=== PATIENT | female | born 1940 | race Caucasian/White ===

== ENCOUNTER 2019-07-01 16:34 | Emergency (ER) | payer MEDICARE, BC ==
[2019-07-01 17:07] VITALS: BP 132/52
--- NOTE | 2019-07-01 17:20 | UC ---
Hip/Pelvis Pain - HPI Summary HPI Summary: 79 yo woman with history of right hip replacement 8 years ago, with progressive pain in the right hip x 4 weeks diagnosed by her orthopedic surgeon as bursitis. An MRI is pending. This morning, she planted her right foot on a rise and twisted, with excruciating pain in the hip since then, such that she is having problems weight bearing. Walks with a cane, but wheel chair assisted to the room. Plain xray one week ago showed normal prosthesis, but she is concerned that she did something today to damage the joint. Has taken 1200mg of gabapentin today, but has not used acetaminophen, which she typically only uses at night. - History Of Current Complaint Chief Complaint: UCLowerExtremity Stated Complaint: RT HIP PAIN Time Seen by Provider: 07/01/19 17:05 Hx Obtained From: Patient Onset/Duration: Gradual Onset, Lasting Weeks Timing: Constant Severity Initially: Severe Severity Currently: Moderate Pain Intensity: 8 Character Of Pain: Dull, Aching, Throbbing Aggravating Factor(s): Movement, Weight Bearing Alleviating Factor(s): Rest, OTC Medications - underusing acetaminophen - Risk Factors Septic Arthritis Risk Factor: Pre-existing Joint Disease, Prosthesis - Allergies/Home Medications Allergies/Adverse Reactions: Allergies Allergy/AdvReac Type Severity Reaction Status Date / Time No Known Allergies Allergy Verified 07/01/19 17:07 PMH/Surg Hx/FS Hx/Imm Hx Cardiovascular History: Cardiac Disease, Hypertension Respiratory History: Asthma Psychological History: Anxiety - Surgical History Surgical History: Yes Surgery Procedure, Year, and Place: 9 stents, both hips replaced, rotator, tubes tied, 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 - Family History Known Family History: Positive: Non-Contributory - Social History Occupation: Retired Lives: With Family Alcohol Use: Daily Substance Use Type: None Smoking Status (MU): Never Smoked Tobacco Review of Systems All Other Systems Reviewed And Are Negative: Yes Constitutional: Positive: Fatigue Cardiovascular: Positive: Other - hx of CAD. Negative: Chest Pain Musculoskeletal: Positive: Arthralgia, Decreased ROM Psychological: Positive: Negative Is Patient Immunocompromised?: No Physical Exam Triage Information Reviewed: Yes Appearance: Pain Distress - moderate, cannot stand or move to exam table. Vital Signs: Initial Vital Signs Temp 98 F 07/01/19 16:56 Pulse 66 07/01/19 16:56 Resp 16 07/01/19 16:56 BP 132/52 07/01/19 16:56 Pulse Ox 100 07/01/19 16:56 Eye Exam: Normal Respiratory: Positive: Lungs clear, Normal breath sounds Cardiovascular: Positive: RRR, No Murmur Musculoskeletal: Positive: No Edema, ROM Limited @ Psychological Exam: Normal Skin Exam: Normal Diagnostics - Radiology No standard instances Radiology Interpretation Completed By: Radiologist Summary of Radiographic Findings: Prosthesis in place, no acute findings per radiologist. Hip Injury Course/Dx - Course Course Of Treatment: Increase use of acetaminophen and follow up with [facility] for further workup. - Differential Dx/Diagnosis Differential Diagnosis/HQI/PQRI: Bursitis, Sprain, Strain, Other - displaced prosthesis. Provider Diagnosis: Bursitis of right hip Discharge ED - Sign-Out/Discharge Documenting (check all that apply): Patient Departure All imaging exams completed and their final reports reviewed: Yes - Discharge Plan Condition: Stable Disposition: HOME Patient Education Materials: Hip Bursitis (ED) Referrals: Elba VICTORIA,Gracie Bell [Primary Care Provider] - Additional Instructions: At least for the next 48 hours, increase use of acetaminophen to 650mg every 6 hours (or 100mg 3x per day), and try heat to the hip. As discussed, please follow up with [facility] to determine best management of your suspected hip bursitis. - Billing Disposition and Condition Condition: STABLE Disposition: Home
[2019-07-01] MEDS ORDERED: Acetaminophen TAB* 325 MG PO ONE (17:23)
== END 2019-07-01 18:39 | disposition home or self-care (01) ==
LOC: UCCORT 16:34
DX: M70.71 Other bursitis of hip, right hip (principal); R53.83 Other fatigue; I10 Essential (primary) hypertension; Z95.5 Presence of coronary angioplasty implant and graft; Z96.643 Presence of artificial hip joint, bilateral
CPT/HCPCS: 99202; A9270-GY; G0463